=== PATIENT | female | born 1975 | race Hispanic/Latino ===

== ENCOUNTER 2023-06-12 17:24 | Observation (INO) | payer SELFPAY ==
[2023-06-12] MEDS ORDERED: Ondansetron PF 4 MG/2 ML Vial IVP PRN (18:37)
[2023-06-12] MEDS ORDERED: Acetaminophen 325 MG TAB PO PRN (18:37)
[2023-06-12] MEDS ORDERED: Calcium Carbonate 500 MG ChewTAB PO PRN (18:37)
[2023-06-12] MEDS ORDERED: Lactated Ringer's 1,000 ML IV SCH (18:45)
[2023-06-12 19:10] LABS: #Basophils 0.1 10x3/uL (0.0-0.2); #Eosinphils 0.1 10x3/uL (0.0-0.5); #Monocytes 0.5 10x3/uL (0.0-1.1); #Neutrophils 2.6 10x3/uL (1.5-8.4); %Basophils 1.9 % (0.0-2.0); %Eosinophils 2.3 % (0.0-6.0); %Lymphocytes 37.1 % (18.0-47.0); %Monocytes 9.4 % (0.0-10.0); %Neutrophils 49.1 % (40.0-75.0); Hemoglobin 6.6 g/dL (12.0-15.5); Mean Corpuscular HGB CONC 27.5 g/dL (32.0-36.0); Mean Corpuscular Hemoglobin 16.8 pg (27.0-33.0); Mean Corpuscular Volume 61.1 fl (81.6-98.3); Mean Platelet Volume 9.8 fl (7.4-10.4); Platelet Count 507 10x3/uL (150-450); RBC Distribution Width 21.9 % (11.5-14.5); Red Blood Cell (RBC) Count 3.93 10x6/uL (3.90-5.03); White Blood Cell (WBC) Count 5.3 10x3/uL (3.5-10.5)
[2023-06-12 19:11] LABS: ALT (SGPT) 16 U/L (8-55); AST (SGOT) 15 U/L (5-34); Albumin 3.9 g/dL (3.5-5.0); Alkaline Phosphatase 71 U/L (40-110); Anion Gap 10 mmol/L (10-20); BUN (Urea Nitrogen) 5 mg/dL (7.0-18.7); Bilirubin, Total 1.8 mg/dL (0.2-1.2); Calc. Creatinine Clearance 0 mL/min (70-130); Calcium 8.3 mg/dL (7.8-10.44); Carbon Dioxide 26 mmol/L (22-29); Chloride 106 mmol/L (98-107); Estimated GFR 117; Globulin 2.9 g/dL (2.4-3.5); Glucose 98 mg/dL (70-105); Potassium 3.7 mmol/L (3.5-5.1); Protein, Total 6.8 g/dL (6.0-8.3); Sodium 138 mmol/L (136-145)
[2023-06-12 19:44] LABS: Anisocytosis MODERATE=16-30 cells (100X) (0-5/hpf); Hypochromia MODERATE=16-30 cells (100X) (0-5/hpf); Microcytosis MODERATE=15-30 cells (100X) (0-5/hpf); Poikilocytosis SLIGHT = 6-15 cells (100X) (0-5/hpf)
[2023-06-12 19:45] LABS: Elliptocytes SLIGHT = 2-5 cells (100X) (0-1/hpf); Ovalocytes SLIGHT = 2-5 cells (100X) (0-1/hpf); Polychromasia SLIGHT = 2-3 cells (100X) (0-2/hpf); Tear Drops SLIGHT = 2-5 cells (100X) (0-1/hpf)
[2023-06-12] MEDS ORDERED: Acetaminophen 325 MG TAB PO SCH (19:45)
[2023-06-12 19:51] LABS: Large Platelets SLIGHT (None Seen); Platelet Adequacy Comment Appears Increased
[2023-06-12 19:52] LABS: Reflex for Review?? YES
[2023-06-12 20:13] VITALS: BMI 29.3
[2023-06-12 22:01] LABS: Bilirubin Neg (Negative); Blood, Urine Negative (Negative); Glucose, Urine (Dipstick) Normal (Negative); Ketone, Urine Negative (Negative); Leukocyte Negative (Negative); Nitrite Negative (Negative); Protein, Urine (Dipstick) Negative (Neg-Trace); Specific Gravity, Urine 1.015 (1.005-1.030); Urobilinogen Normal mg/dL (Less than 2)
[2023-06-12 22:17] LABS: Clarity Clear (Clear)
[2023-06-12 22:18] LABS: Bacteria/HPF None Seen HPF (None Seen); CAUTI Indications for Culture Pelvic or flank pain; RBC/HPF None Seen HPF (0-3); Squamous Epithelial 0-3 HPF (0-3); WBC/HPF None Seen HPF (0-3)
[2023-06-12 22:19] LABS: Urine Culture Reflex No No
[2023-06-13 04:31] LABS: Hematocrit 25.7 % (34.9-44.5); Hemoglobin 7.2 g/dL (12.0-15.5)
[2023-06-13] MEDS ORDERED: Ferrous Sulfate 325 MG TAB PO SCH (09:00)
[2023-06-13 15:30] VITALS: BP 95/68; TEMP 98.9
== END 2023-06-13 15:45 | disposition home or self-care (01) ==
LOC: INTOOBSV 17:24 → CSHPP 17:24
PROVIDERS: ADMIT Obstetrics & Gynecology; ATTEND Obstetrics & Gynecology
DX: N17.9 Acute kidney failure, unspecified (principal); N18.9 Chronic kidney disease, unspecified; D63.1 Anemia in chronic kidney disease; D25.9 Leiomyoma of uterus, unspecified; N92.0 Excessive and frequent menstruation with regular cycle
CPT/HCPCS: 36415; 36430; 76856; 80053; 81001; 85014; 85018; 85025; 85060; 86850; 86900; 86901; P9016